=== PATIENT | female | born 1960 | race Caucasian/White ===

== ENCOUNTER 2018-11-17 18:09 | Emergency (ER) | payer MEDICARE ==
[~2018-11-17] VITALS: Ht 167.6 cm; Wt 84.4 kg
[2018-11-17 18:15] VITALS: BP 125/92
[2018-11-17] MEDS ORDERED: TRIAMCINOLONE 40MG/ML 1ML VIAL IX ONE (20:15)
[2018-11-17] MEDS ORDERED: ONDANSETRON ODT 4 MG TAB PO ONE (20:15)
[2018-11-17] MEDS ORDERED: MEPERIDINE HCL (50 MG/ML) 1 ML VIAL IM ONE (20:15)
[2018-11-17] MEDS ORDERED: MEPERIDINE HCL (25 MG/ML) 1ML VIAL ONE (20:31)
== END 2018-11-17 21:54 | disposition home or self-care (01) ==
LOC: EDBD 18:09 → ER 18:11
DX: S80.02XA Contusion of left knee, initial encounter (principal); S80.01XA Contusion of right knee, initial encounter; S50.01XA Contusion of right elbow, initial encounter; S70.02XA Contusion of left hip, initial encounter; W19.XXXA Unspecified fall, initial encounter; Y93.89 Activity, other specified; Y92.89 Other specified places as the place of occurrence of the external cause; Y99.8 Other external cause status
CPT/HCPCS: 73080; 73502; 73562; 96372; 99283; J2175; J3301; Q0162